=== PATIENT | female | born 1980 | race Caucasian/White ===

== ENCOUNTER → 2017-06-10 | Emergency (ER) | payer OTHER ==
[2017-06-10 17:44] VITALS: BP 110/65; PULSE 95; TEMP 98.2; BMI 29.2
--- NOTE | 2017-06-10 19:11 | PDOC ---
History of Present Illness <Yakov Rincon - Last Filed: 06/11/17 00:24> - History of Present Illness Initial Comments: 06/10/17 19:29 Patient is a 36 year old female with no PMH who presents with sudden onset lower abdominal pain. Patient reports sudden onset 10/10 sharp lower abdominal pain beginning during intercourse earlier today. She states that the pain is intermittent but always present. It is worse with movement and laughing and has tried nothing to improve the pain prompting her visit to the ED today. She recently gave in January and has not been on control. She is currently sexually with one male partner. She denies any abnormal vaginal discharge or bleeding. Her last menstrual period was 1 month ago. She denies fevers, chills, vomiting, or changes with urination or bowel movements. <Jaren Welsh - Last Filed: 06/11/17 21:13> - General Chief Complaint: Pain Stated Complaint: PELVIC PAIN Time Seen by Provider: 06/10/17 18:32 Past History <Yakov Rincon - Last Filed: 06/11/17 00:24> - Past Medical History Diabetes: Yes (gestational) - Psycho/Social/Smoking Cessation Hx Suicidal Ideation: No Smoking History: Never smoked Information on smoking cessation initiated: No Hx Alcohol Use: No Drug/Substance Use Hx: No Substance Use Type: None <Jaren Welsh - Last Filed: 06/11/17 21:13> - Past Medical History Allergies/Adverse Reactions: Allergies Allergy/AdvReac Type Severity Reaction Status Date / Time No Known Allergies Allergy Verified 06/10/17 18:47 Home Medications: Ambulatory Orders NK [No Known Home Medication] 06/10/17 Review of Systems - Review of Systems Constitutional: No: Chills, Fever HEENTM: No: Recent change in vision, Nose Congestion Respiratory: No: Cough, Shortness of Breath Cardiac (ROS): No: Chest Pain, Lightheadedness ABD/GI: No: Constipated, Diarrhea, Nausea, Vomiting : No: Burning, Dysuria, Discharge, Hematuria Integumentary: No: Rash Neurological: No: Headache, Tingling <Jaren Welsh - Last Filed: 06/11/17 21:13> *Physical Exam - Vital Signs Last Vital Signs Temp Pulse Resp BP Pulse Ox 98.2 F 95 H 18 110/65 100 06/10/17 17:42 06/10/17 17:42 06/10/17 17:42 06/10/17 17:42 06/10/17 17:42 <Yakov Rincon - Last Filed: 06/11/17 00:24> - Vital Signs Last Vital Signs Temp Pulse Resp BP Pulse Ox 98.2 F 95 H 18 110/65 100 06/10/17 17:42 06/10/17 17:42 06/10/17 17:42 06/10/17 17:42 06/10/17 17:42 - Physical Exam Comments: 06/10/17 23:00 General Appearance: Nourished. No Apparent Distress HEENT: No Pharyngeal Erythema, Tonsillar Exudate, Tonsillar Erythema Respiratory/Chest: Lungs Clear, Normal Breath Sounds. No Crackles, Rales, Rhonchi, Wheezing Cardiovascular: Regular Rhythm, Regular Rate. No Murmur, Gallop/S3, Gallop/S4 Female Pelvic Exam: normal external exam, cervical os closed, adnexal tenderness. negative: vaginal bleeding Gastrointestinal/Abdominal: Normal Bowel Sounds, Soft, Tenderness to palpation with guarding in the lower right quadrant and suprapubic regions. No Rebound Extremity: Normal Capillary Refill Integumentary: Normal Color, Dry, Warm Neurologic: Fully Oriented, Alert, Normal Mood/Affect, Normal Response <Jaren Welsh - Last Filed: 06/11/17 21:13> ED Treatment Course - LABORATORY CBC & Chemistry Diagram: 06/10/17 19:11 06/10/17 19:25 - ADDITIONAL ORDERS Additional order review: Laboratory Results 06/10/17 06/10/17 06/10/17 19:25 19:25 19:25 INR PTT (Actin FS) Sodium Potassium Chloride Carbon Dioxide Anion Gap BUN Creatinine Creat Clearance w eGFR Random Glucose Calcium Total Bilirubin AST ALT Alkaline Phosphatase Total Protein Albumin Beta HCG, Quant 1307.8 Serum , Qual Positive Urine Color Yellow Urine Appearance Clear Urine pH 6.0 Ur Specific [place] 1.025 Urine Protein 1+ H Urine Glucose (UA) 3+ H Urine Ketones Trace H Urine Blood Negative Urine Nitrite Negative Urine Bilirubin Negative Urine Urobilinogen Negative Ur Leukocyte Esterase Trace Urine RBC 4 Urine WBC 1 Ur Epithelial Cells Few Urine Mucus Many Blood Type O POSITIVE Antibody Screen Negative 06/10/17 06/10/17 19:25 19:25 INR 1.12 PTT (Actin FS) 28.8 Sodium 136 Potassium 4.3 Chloride 103 Carbon Dioxide 25 Anion Gap 8 BUN 10 Creatinine 0.6 Creat Clearance w eGFR > 60 Random Glucose 177 H Calcium 9.2 Total Bilirubin 0.3 AST 21 ALT 30 Alkaline Phosphatase 90 Total Protein 7.7 Albumin 3.6 Beta HCG, Quant Serum , Qual Urine Color Urine Appearance Urine pH Ur Specific [place] Urine Protein Urine Glucose (UA) Urine Ketones Urine Blood Urine Nitrite Urine Bilirubin Urine Urobilinogen Ur Leukocyte Esterase Urine RBC Urine WBC Ur Epithelial Cells Urine Mucus Blood Type Antibody Screen 06/10/17 19:11 RBC 4.55 MCV 83.8 MCHC 32.1 RDW 14.8 MPV 8.5 Neutrophils % 79.1 Lymphocytes % 14.9 Monocytes % 4.8 Eosinophils % 0.4 Basophils % 0.8 <Yakov Rincon - Last Filed: 06/11/17 00:24> - LABORATORY CBC & Chemistry Diagram: 06/10/17 19:11 06/10/17 19:25 <Jaren Welsh - Last Filed: 06/11/17 21:13> Medical Decision Making - Medical Decision Making 06/10/17 19:50 Patient is a 36 year old who presents with sudden onset lower abdominal pain. Differential includes but is not limited to: ovarian torsion, ovarian cyst rupture, ectopic , vaginal tearing, appendicitis. We will obtain a set of labs including a cbc, cmp, ua, serum to evaluate for infection. We will also obtain a transvaginal US to evaluate for torsion or cysts. 06/10/17 22:46 Patient's labs show an elevated WBC to 13.4 and a positive serum . We will get a quantitative beta-HCG and continue with transvaginal US. 06/10/17 23:47 Transvaginal US was unremarkable however, the patient's quantitative beta-HCG was around 1000 and too low to see an intrauterine . We discussed the case with Dr. Headley who agreed to see the patient in clinic on Wednesday for follow up evaluation and repeat beta-HCG. The patient's exam and clinical history is unconcerning for appendicitis and we feel comfortable discharging the patient home with quick follow up with Dr. Headley. We discussed the results with the patient and the plan to follow up with Dr. Headley and she is agreeable to the plan. <Jaren Welsh - Last Filed: 06/11/17 21:13> *DC/Admit/Observation/Transfer <Yakov Rincon - Last Filed: 06/11/17 00:24> - Attestations Physician Attestion: 06/11/17 00:03 I, Dr. Jaren Welsh, attest that this document has been prepared under my direction and personally reviewed by me in its entirety. I further attest, that it accurately reflects all work, treatment, procedures and medical decision -making performed by me. <Jaren Welsh - Last Filed: 06/11/17 21:13> Diagnosis at time of Disposition: Early stage of - Discharge Dispostion Disposition: HOME Condition at time of disposition: Improved - Referrals Referrals: Andrea Blount [Primary Care Provider] - Rigoberto Headley MD [Staff Physician] - - Patient Instructions Printed Discharge Instructions: DI for -- Discomforts and Remedies Additional Instructions: Please return to the ER if you experience new or worsening symptoms. Please call Dr. Headley for follow up in his real estate office supervisor clinic on Wednesday to schedule an appointment. You will need a repeat beta-HCG test and to be reevaluated. - Post Discharge Activity Work/School Note: Back to Work
[2017-06-10 19:53] LABS: BASOPHIL 0.8 % (0-2.0); EOSINOPHIL 0.4 % (0-4.5); MCH 26.9 pg (25.7-33.7); MCHC 32.1 g/dl (32.0-36.0); MEAN CELL VOLUME 83.8 fl (80-96); MEAN PLT VOLUME 8.5 fl (7.5-11.1); NEUTROPHILS 79.1 % (42.8-82.8); PLATELET COUNT 301 K/MM3 (134-434); RDW 14.8 % (11.6-15.6); WHITE BLOOD COUNT 13.8 K/mm3 (4.0-10.0)
[2017-06-10 19:55] LABS: URINE APPEARANCE CLEAR; URINE BILIRUBIN NEGATIVE (NEGATIVE); URINE BLOOD NEGATIVE (NEGATIVE); URINE COLOR YELLOW; URINE GLUCOSE (UA) 3+ (NEGATIVE); URINE KETONE TRACE (NEGATIVE); URINE LEUK ESTERASE TRACE (NEGATIVE); URINE NITRITE NEGATIVE (NEGATIVE); URINE UROBILINOGEN NEGATIVE mg/dL (0.2-1.0)
[2017-06-10 19:58] LABS: URINE PROTEIN 1+ (NEGATIVE)
[2017-06-10 20:04] LABS: INR 1.12 (0.82-1.09); PROTHROMBIN TIME (PATIENT) 12.3 SEC (9.98-11.88)
[2017-06-10 20:07] LABS: ACTIVATED PTT 28.8 SECONDS (26.9-34.4)
[2017-06-10 20:26] LABS: ALBUMIN 3.6 g/dl (3.4-5.0); ALK PHOS 90 U/L (45-117); ANION GAP 8 (8-16); BILIRUBIN,TOTAL 0.3 mg/dL (0.2-1.0); CALCIUM 9.2 mg/dL (8.5-10.1); CO2 25 mmol/L (21-32); CREATININE 0.6 mg/dL (0.55-1.02); GLUCOSE,RANDOM 177 mg/dL (74-106); SGOT/AST 21 U/L (15-37); SGPT/ALT 30 U/L (12-78); TOT PROT 7.7 g/dl (6.4-8.2)
--- NOTE | 2017-06-10 21:32 | PDOC ---
Attending Attestation - Resident Resident Name: Jaren Welsh - ED Attending Attestation I have performed the following: I have examined & evaluated the patient, The case was reviewed & discussed with the resident, I agree w/resident's findings & plan, Exceptions are as noted <Yakov Rincon - Last Filed: 06/10/17 21:32> - HPI HPI: 06/10/17 21:33 Patient is a 36 year old female with no pmhx who presents to the ED with lower abdominal pain and pelvic pain today. Patient states that she developed pain during intercourse. She denies any vaginal bleeding or discharge. Patient is not on control. Patient is sexually active with one partner. LMP 1 month ago. - Physicial Exam PE: 06/10/17 21:33 GENERAL: Awake, alert, and fully oriented, in no acute distress HEAD: No signs of trauma EYES: PERRLA, EOMI, sclera anicteric, conjunctiva clear ENT: Auricles normal inspection, hearing grossly normal, nares patent, oropharynx clear without exudates. Moist mucosa NECK: Normal ROM, supple, no lymphadenopathy, JVD, or masses LUNGS: Breath sounds equal, clear to auscultation bilaterally. No wheezes, and no crackles HEART: Regular rate and rhythm, normal S1 and S2, no murmurs, rubs or gallops ABDOMEN: Soft, nontender, normoactive bowel sounds. No guarding, no rebound. No masses EXTREMITIES: Normal range of motion, no edema. No clubbing or cyanosis. No cords, erythema, or tenderness NEUROLOGICAL: Cranial nerves II through XII grossly intact. Normal speech, normal gait SKIN: Warm, Dry, normal turgor, no rashes or lesions noted. Pelvic Exam: (+)Tender on right adnexal, Tender on cervical motion upon manual exam - Medical Decision Making 06/10/17 21:35 Plan: - Serum Preg - Transvaginal US - Labs <Kasandra Perez - Last Filed: 06/10/17 21:37>
[2017-06-10 22:21] LABS: URINE MUCUS MANY; URINE RBC 4 /hpf (0-3); URINE WBC 1 /hpf (3-5)
== END | disposition home or self-care (01) ==
LOC: JER 17:29
DX: O26.891 Other specified pregnancy related conditions, first trimester (principal); R10.30 Lower abdominal pain, unspecified; O34.11 Maternal care for benign tumor of corpus uteri, first trimester; D25.9 Leiomyoma of uterus, unspecified; Z3A.01 Less than 8 weeks gestation of pregnancy
CPT/HCPCS: 36415; 76830-TC; 80053; 81003; 81015; 84702; 84703; 85025; 85610; 85730; 86850; 86900; 86901; 87110; 87491; 87591; 99282-25